=== PATIENT | male | born 1930 | race Caucasian/White ===

== ENCOUNTER 2017-09-10 19:49 | Emergency (ER) | payer MEDICARE, OTHER ==
[2017-09-10 22:02] LABS: WHITE BLOOD COUNT 5.8 10^3/ul (4.8-10.8)
[2017-09-10 22:02] LABS: HEMATOCRIT 34.2 % (42.0-52.0); MEAN CORPUSCULAR HEMOGLOBIN 30.5 pg (29.0-33.0); MEAN CORPUSCULAR HGB CONC 35.1 g/dl (32.0-37.0); MEAN CORPUSCULAR VOLUME 86.8 fl (82.0-101.0); PLATELET COUNT 140 10^3/UL (140-415); RED BLOOD COUNT 3.94 10^6/ul (4.70-6.10); RED CELL DISTRIBUTION WIDTH 14.2 % (11.5-14.5)
[2017-09-10] MEDS: IPRATROPIUM (NEB) 0.5 MG/2.5 ML AMP INH (22:03)
[2017-09-10] MEDS: ALBUTEROL 0.5% (NEB) 2.5 MG/0.5 ML AMP INH (22:03)
[2017-09-10] MEDS: IBUPROFEN 600 MG TAB PO (22:10)
[2017-09-10] MEDS: CEFTRIAXONE 1 GM/50 ML (PMX) 50 ML IVPB (22:10)
[2017-09-10] MEDS: SODIUM CHLORIDE 0.9% 1L BAG IV* (22:10)
[2017-09-10] MEDS: METHYLPREDNISOLONE 125 MG INJ IV (22:10)
[2017-09-10 22:11] LABS: INR 1.19; PROTIME 15.3 Sec (11.9-14.9); PT RATIO 1.2
[2017-09-10 22:12] LABS: PARTIAL THROMBOPLASTIN TIME 35.9 Sec (25.0-35.0)
[2017-09-10 22:14] LABS: LACTIC ACID 1.6 mmol/L (0.5-2.0)
[2017-09-10 22:15] LABS: ADD MAN DIFF? YES; ALANINE AMINOTRANSFERASE 32 IU/L (13-69); ALBUMIN 3.3 g/dl (3.3-4.9); ALBUMIN/GLOBULIN RATIO 1.03; ALKALINE PHOSPHATASE 104 IU/L (42-121); ANION GAP 14 (8-16); ASPARTATE AMINO TRANSFERASE 18 IU/L (15-46); BILIRUBIN,INDIRECT 0.3 mg/dl (0-1.1); BILIRUBIN,TOTAL 0.3 mg/dl (0.2-1.3); BLOOD UREA NITROGEN 20 mg/dl (7-20); CALCIUM 8.2 mg/dl (8.4-10.2); CARBON DIOXIDE 26 mmol/L (21-31); CHLORIDE 100 mmol/L (97-110); CREATININE 0.71 mg/dl (0.61-1.24); GLUCOSE 252 mg/dl (70-220); LIPASE 41 U/L (23-300); POTASSIUM 4.5 mmol/L (3.5-5.1); SODIUM 135 mmol/L (135-144); TOTAL PROTEIN 6.5 g/dl (6.1-8.1)
[2017-09-10 22:28] LABS: TROPONIN-I < 0.012 ng/ml (0.00-0.12)
[2017-09-10 22:40] LABS: BAND NEUTROPHILS #M 0.1 10^3/ul (0.0-0.6); BAND NEUTROPHILS % (M) 3 % (0-4); EOSINOPHILS % (M) 2 % (0-7); GIANT THROMBO% (M) 1 % (0-0); LYMPHOCYTES #M 0.6 10^3/ul (0.8-2.9); LYMPHOCYTES % (M) 11 % (15-51); MONOCYTE #M 0.6 10^3/ul (0.3-0.9); MONOCYTES % (M) 11 % (0-11); PLATELET ESTIMATE NORMAL; POIKILOCYTOSIS 1+ (0-0); POLYCHROMASIA 2+ (0-0); REACTIVE LYMPHOCYTES% (M) 1 % (0-0); SEG NEUT #M 4.2 10^3/ul (1.6-7.5); SEGMENTED NEUTROPHILS (M) % 72 % (39-77); SMUDGE%M 9 % (0-0)
[2017-09-10 23:26] LABS: ADD UMIC NO; UR ASCORBIC ACID 40 mg/dL (NEGATIVE); UR BILIRUBIN (Dip) NEGATIVE (NEGATIVE); UR BLOOD (Dip) NEGATIVE (NEGATIVE); UR CLARITY CLEAR (CLEAR); UR COLOR YELLOW (YELLOW); UR GLUCOSE (Dip) NEGATIVE (NEGATIVE); UR KETONES (Dip) NEGATIVE (NEGATIVE); UR LEUKOCYTE ESTERASE (Dip) NEGATIVE Leu/ul (NEGATIVE); UR NITRITE (Dip) NEGATIVE (NEGATIVE); UR SPECIFIC GRAVITY (Dip) 1.018 (1.003-1.030); UR TOTAL PROTEIN (Dip) NEGATIVE (NEGATIVE); UR UROBILINOGEN (Dip) 1+ mg/dL (NEGATIVE)
[2017-09-11] MEDS ORDERED: LORAZEPAM 0.5 MG TAB PO
[2017-09-11] MEDS ORDERED: DOCUSATE SODIUM 100 MG CAP PO
[2017-09-11] MEDS ORDERED: NACL 0.9% 3 ML SYG IV
[2017-09-11] MEDS ORDERED: OXYCODONE/ACETAMINOPHEN (5/325) TAB PO
[2017-09-11] MEDS ORDERED: ONDANSETRON 4 MG TAB PO
[2017-09-11] MEDS ORDERED: ACETAMINOPHEN 650 MG SUPP PR
[2017-09-11] MEDS: CEFTRIAXONE 1 GM/50 ML (PMX) 50 ML IVPB
[2017-09-11] MEDS ORDERED: MECLIZINE 25 MG TAB PO
[2017-09-11] MEDS: AZITHROMYCIN 500MG/NS (PMX) 250 ML IVPB (00:20)
[2017-09-11 00:42] LABS: B-TYPE NATRIURETIC PEPTIDE 353 PG/ML (0-450)
[2017-09-11] MEDS: IOHEXOL 300MG/ML 150 ML BTL (01:16)
[2017-09-11] MEDS: SOD CHLORIDE 0.9% 100 ML (01:16)
[2017-09-11] MEDS: AZITHROMYCIN 500MG/NS (PMX) 250 ML IV (01:33)
[2017-09-11 01:34] LABS: HEMOGLOBIN A1C 6.4 % (0-5.9)
[2017-09-11] MEDS: ALBUTEROL/IPRATROPIUM (NEB) 3 ML AMP NEB ×3 (01:59→09:56)
[2017-09-11] MEDS ORDERED: GLUCOSE GEL 15 GRAM TUBE PO ×2 (02:00)
[2017-09-11] MEDS ORDERED: DEXTROSE 50% 50 ML SYRINGE IV ×2 (02:00)
[2017-09-11] MEDS ORDERED: GLUCAGON 1 MG INJ IM (02:00)
[2017-09-11] MEDS ORDERED: GLUCOSE GEL 15 GRAM TUBE BUCCAL (02:00)
[2017-09-11] MEDS: ACCU-CHEK XX (02:04)
[2017-09-11 06:44] LABS: ADD MAN DIFF? NO
[2017-09-11 06:50] LABS: BASOPHILS % 0.2 % (0.0-2.0); HEMOGLOBIN 11.6 g/dl (14.0-18.0); LYMPHOCYTES # 0.9 10^3/ul (0.8-2.9); LYMPHOCYTES % 17.7 % (15.0-51.0); MEAN CORPUSCULAR HEMOGLOBIN 29.8 pg (29.0-33.0); MEAN CORPUSCULAR HGB CONC 34.1 g/dl (32.0-37.0); MEAN CORPUSCULAR VOLUME 87.4 fl (82.0-101.0); MEAN PLATELET VOLUME 8.9 fl (7.4-10.4); MONOCYTES % 18.9 % (0.0-11.0); NEUTROPHIL # 3.2 10^3/ul (1.6-7.5); NEUTROPHILS % 62.8 % (39.0-77.0); PLATELET COUNT 124 10^3/UL (140-415); RED BLOOD COUNT 3.89 10^6/ul (4.70-6.10); RED CELL DISTRIBUTION WIDTH 14.3 % (11.5-14.5)
[2017-09-11 07:31] LABS: ALANINE AMINOTRANSFERASE 32 IU/L (13-69); ALBUMIN 2.8 g/dl (3.3-4.9); ALBUMIN/GLOBULIN RATIO 0.96; ALKALINE PHOSPHATASE 86 IU/L (42-121); ANION GAP 13 (8-16); ASPARTATE AMINO TRANSFERASE 17 IU/L (15-46); BILIRUBIN,INDIRECT 0.1 mg/dl (0-1.1); BILIRUBIN,TOTAL 0.1 mg/dl (0.2-1.3); BLOOD UREA NITROGEN 16 mg/dl (7-20); CALCIUM 7.6 mg/dl (8.4-10.2); CARBON DIOXIDE 21 mmol/L (21-31); CHLORIDE 110 mmol/L (97-110); CREATININE 0.58 mg/dl (0.61-1.24); GLUCOSE 290 mg/dl (70-220); SODIUM 140 mmol/L (135-144); TOTAL PROTEIN 5.7 g/dl (6.1-8.1)
[2017-09-11] MEDS: LEVOTHYROXINE 100 MCG TAB PO (07:50)
[2017-09-11] MEDS: INSULIN ASPART [NOVOLOG] 3 ML PEN SC (08:36)
[2017-09-11] MEDS: HYDROCHLOROTHIAZIDE 25 MG TAB PO (09:27)
[2017-09-11] MEDS: APIXABAN 5 MG TABLET PO (09:27)
[2017-09-11] MEDS: FAMOTIDINE 20 MG TAB PO (09:27)
[2017-09-11] MEDS: FISH OIL 1,000 MG CAP PO (09:27)
[2017-09-11] MEDS: LOSARTAN 25 MG TAB PO (09:28)
[2017-09-11] MEDS: AMIODARONE 200 MG TAB PO (09:28)
[2017-09-11] MEDS: METOPROLOL (XL) 25 MG TAB PO (09:29)
[2017-09-11] MEDS: ASPIRIN 81 MG TAB PO (09:31)
[2017-09-11] MEDS: predniSONE 20 MG TAB PO (09:36)
[2017-09-11] MEDS: NPH, HUMAN INSULIN ISOPHANE 3ML VIAL SC (09:49)
[2017-09-11] MEDS ORDERED: ACCU-CHEK XX (10:00)
[2017-09-11] MEDS: SALMETEROL/FLUTICASONE 500/50 INHA INH (10:05)
[2017-09-11] MEDS ORDERED: MONTELUKAST 10 MG TAB PO (21:00)
[2017-09-11] MEDS ORDERED: ATORVASTATIN 10 MG TAB PO (21:00)
[2017-09-11] MEDS ORDERED: TAMSULOSIN (SR) 0.4 MG CAP PO (21:00)
== END 2017-09-11 10:55 | disposition home or self-care (01) ==
LOC: E/R 09-11 10:55
DX: J45.41 Moderate persistent asthma with (acute) exacerbation (principal)
CPT/HCPCS: 36415; 71045; 71275; 80053; 81003; 82962; 83036; 83605; 83690; 83880; 84484; 85025; 85610; 85730; 87040; 87086; 87400; 93005; 94640; 94644; 94664; 96365; 96372; 96375; 99285-25

== ENCOUNTER 2017-12-01 21:33 | Observation (INO) | payer MEDICARE, OTHER ==
[2017-12-01 22:34] LABS: ADD MAN DIFF? NO
[2017-12-01 22:36] LABS: WHITE BLOOD COUNT 6.6 10^3/ul (4.8-10.8)
[2017-12-01 22:36] LABS: BASOPHILS % 0.3 % (0.0-2.0); EOSINOPHILS # 0.1 10^3/ul (0.0-0.5); EOSINOPHILS % 0.9 % (0.0-7.0); HEMATOCRIT 34.7 % (42.0-52.0); HEMOGLOBIN 11.6 g/dl (14.0-18.0); LYMPHOCYTES # 0.8 10^3/ul (0.8-2.9); LYMPHOCYTES % 12.7 % (15.0-51.0); MEAN CORPUSCULAR HEMOGLOBIN 29.4 pg (29.0-33.0); MEAN CORPUSCULAR HGB CONC 33.4 g/dl (32.0-37.0); MEAN CORPUSCULAR VOLUME 87.8 fl (82.0-101.0); MEAN PLATELET VOLUME 9.5 fl (7.4-10.4); MONOCYTE # 1.2 10^3/ul (0.3-0.9); MONOCYTES % 18.1 % (0.0-11.0); NEUTROPHIL # 4.4 10^3/ul (1.6-7.5); NEUTROPHILS % 67.7 % (39.0-77.0); PLATELET COUNT 109 10^3/UL (140-415); RED BLOOD COUNT 3.95 10^6/ul (4.70-6.10); RED CELL DISTRIBUTION WIDTH 14.8 % (11.5-14.5)
[2017-12-01 22:43] LABS: ADD UMIC NO; UR ASCORBIC ACID 40 mg/dL (NEGATIVE); UR BILIRUBIN (Dip) NEGATIVE (NEGATIVE); UR BLOOD (Dip) NEGATIVE (NEGATIVE); UR CLARITY CLEAR (CLEAR); UR COLOR YELLOW (YELLOW); UR GLUCOSE (Dip) 1+ mg/dL (NEGATIVE); UR KETONES (Dip) NEGATIVE (NEGATIVE); UR LEUKOCYTE ESTERASE (Dip) NEGATIVE Leu/ul (NEGATIVE); UR NITRITE (Dip) NEGATIVE (NEGATIVE); UR SPECIFIC GRAVITY (Dip) 1.015 (1.003-1.030); UR TOTAL PROTEIN (Dip) NEGATIVE (NEGATIVE); UR UROBILINOGEN (Dip) 1+ mg/dL (NEGATIVE)
[2017-12-01 22:54] LABS: ALANINE AMINOTRANSFERASE 30 IU/L (13-69); ALBUMIN 3.1 g/dl (3.3-4.9); ALBUMIN/GLOBULIN RATIO 0.93; ALKALINE PHOSPHATASE 172 IU/L (42-121); ANION GAP 12 (8-16); ASPARTATE AMINO TRANSFERASE 15 IU/L (15-46); BILIRUBIN,INDIRECT 0.5 mg/dl (0-1.1); BILIRUBIN,TOTAL 0.5 mg/dl (0.2-1.3); BLOOD UREA NITROGEN 17 mg/dl (7-20); CALCIUM 8.6 mg/dl (8.4-10.2); CARBON DIOXIDE 28 mmol/L (21-31); CHLORIDE 98 mmol/L (97-110); CREATININE 0.78 mg/dl (0.61-1.24); GLUCOSE 289 mg/dl (70-220); POTASSIUM 4.8 mmol/L (3.5-5.1); SODIUM 133 mmol/L (135-144); TOTAL PROTEIN 6.4 g/dl (6.1-8.1)
[2017-12-01 22:55] LABS: LACTIC ACID 1.6 mmol/L (0.5-2.0)
[2017-12-01 22:55] LABS: INR 1.16; PT RATIO 1.2
[2017-12-01 22:56] LABS: PARTIAL THROMBOPLASTIN TIME 35.2 Sec (25.0-35.0)
[2017-12-01 23:11] LABS: TROPONIN-I < 0.012 ng/ml (0.000-0.120)
[2017-12-01 23:31] LABS: MAGNESIUM 1.7 mg/dl (1.7-2.5)
[2017-12-01] MEDS: SOD CHLORIDE 0.9% 500 ML IV (23:45)
[2017-12-02 04:49] LABS: LACTIC ACID 0.8 mmol/L (0.5-2.0)
[2017-12-02] MEDS ORDERED: NACL 0.9% 3 ML SYG IV (05:00)
[2017-12-02] MEDS ORDERED: DOCUSATE SODIUM 100 MG CAP PO (05:00)
[2017-12-02] MEDS ORDERED: HYDROCODONE/APAP (5/325) TAB PO (05:00)
[2017-12-02] MEDS: ALBUTEROL HFA 8 GM INHALER INH ×6 (05:00→23:33)
[2017-12-02] MEDS ORDERED: MECLIZINE 25 MG TAB PO (05:00)
[2017-12-02] MEDS ORDERED: HEPARIN 5,000 UNIT/0.5 ML VIAL SC (06:00)
[2017-12-02] MEDS: LEVOTHYROXINE 100 MCG TAB PO (06:35)
[2017-12-02] MEDS: PANTOPRAZOLE (EC) 40 MG TAB PO (06:35)
[2017-12-02] MEDS ORDERED: DEXTROSE 50% 50 ML SYRINGE IV ×2 (08:00)
[2017-12-02] MEDS ORDERED: GLUCOSE GEL 15 GRAM TUBE PO ×2 (08:00)
[2017-12-02] MEDS ORDERED: GLUCAGON 1 MG INJ IM (08:00)
[2017-12-02] MEDS ORDERED: GLUCOSE GEL 15 GRAM TUBE BUCCAL (08:00)
[2017-12-02] MEDS: LINAGLIPTIN 5 MG TABLET PO (08:18)
[2017-12-02] MEDS: AZITHROMYCIN 250 MG TAB PO (08:18)
[2017-12-02] MEDS: FISH OIL 1,000 MG CAP PO ×2 (08:19→20:58)
[2017-12-02] MEDS: FAMOTIDINE 20 MG TAB PO ×2 (08:19→20:59)
[2017-12-02] MEDS: DOCUSATE SODIUM 250 MG CAP PO ×2 (08:19→20:58)
[2017-12-02] MEDS: SALMETEROL/FLUTICASONE 500/50 INHA INH ×2 (08:21→20:57)
[2017-12-02] MEDS: METOPROLOL (XL) 25 MG TAB PO (08:24)
[2017-12-02] MEDS: HYDROCHLOROTHIAZIDE 12.5 MG CAP PO (08:24)
[2017-12-02] MEDS: LOSARTAN 25 MG TAB PO (08:25)
[2017-12-02] MEDS: INSULIN ASPART [NOVOLOG] 3 ML PEN SC ×4 (08:27→21:00)
[2017-12-02] MEDS: APIXABAN 5 MG TABLET PO ×2 (08:31→20:59)
[2017-12-02] MEDS: ASPIRIN 81 MG TAB PO (08:31)
[2017-12-02] MEDS ORDERED: NON-FORMULARY/PATIENT OWN MED (Icosapent Ethyl (Vascepa) 2 GM) PO (09:00)
[2017-12-02] MEDS: ACCU-CHEK XX ×3 (10:05→19:54)
[2017-12-02] MEDS: metFORMIN 500 MG TAB PO ×2 (12:30→17:17)
[2017-12-02] MEDS: TIOTROPIUM 18 MCG CAPSULE INHA DEV INH (13:04)
[2017-12-02] MEDS: MONTELUKAST 10 MG TAB PO (20:59)
[2017-12-02] MEDS: TAMSULOSIN (SR) 0.4 MG CAP PO (20:59)
[2017-12-02] MEDS: ATORVASTATIN 10 MG TAB PO (20:59)
[2017-12-02] MEDS: IBUPROFEN 600 MG TAB PO (22:24)
[2017-12-03] MEDS: ALBUTEROL HFA 8 GM INHALER INH ×4 (01:00→12:17)
[2017-12-03] MEDS: ACCU-CHEK XX ×2 (02:00→10:05)
[2017-12-03 06:08] LABS: ADD MAN DIFF? NO
[2017-12-03 06:11] LABS: WHITE BLOOD COUNT 5.1 10^3/ul (4.8-10.8)
[2017-12-03 06:11] LABS: ABNORMAL IP MESSAGE 1; BASOPHILS % 0.2 % (0.0-2.0); EOSINOPHILS # 0.2 10^3/ul (0.0-0.5); EOSINOPHILS % 3.7 % (0.0-7.0); HEMATOCRIT 31.2 % (42.0-52.0); HEMOGLOBIN 10.6 g/dl (14.0-18.0); LYMPHOCYTES # 0.8 10^3/ul (0.8-2.9); LYMPHOCYTES % 15.9 % (15.0-51.0); MEAN CORPUSCULAR HEMOGLOBIN 29.9 pg (29.0-33.0); MEAN CORPUSCULAR VOLUME 88.1 fl (82.0-101.0); MONOCYTE # 1.1 10^3/ul (0.3-0.9); MONOCYTES % 20.6 % (0.0-11.0); PLATELET COUNT 85 10^3/UL (140-415); POSITIVE DIFF @See below; RED BLOOD COUNT 3.54 10^6/ul (4.70-6.10); RED CELL DISTRIBUTION WIDTH 14.6 % (11.5-14.5)
[2017-12-03] MEDS: PANTOPRAZOLE (EC) 40 MG TAB PO (06:14)
[2017-12-03] MEDS: LEVOTHYROXINE 100 MCG TAB PO (06:14)
[2017-12-03 06:37] LABS: ALANINE AMINOTRANSFERASE 27 IU/L (13-69); ALBUMIN 2.8 g/dl (3.3-4.9); ALBUMIN/GLOBULIN RATIO 0.96; ALKALINE PHOSPHATASE 123 IU/L (42-121); ANION GAP 14 (8-16); ASPARTATE AMINO TRANSFERASE 14 IU/L (15-46); BILIRUBIN,INDIRECT 0.7 mg/dl (0-1.1); BILIRUBIN,TOTAL 0.7 mg/dl (0.2-1.3); BLOOD UREA NITROGEN 24 mg/dl (7-20); CALCIUM 8.4 mg/dl (8.4-10.2); CARBON DIOXIDE 27 mmol/L (21-31); CHLORIDE 97 mmol/L (97-110); CREATININE 0.84 mg/dl (0.61-1.24); GLUCOSE 152 mg/dl (70-220); POTASSIUM 3.8 mmol/L (3.5-5.1); SODIUM 134 mmol/L (135-144); TOTAL PROTEIN 5.7 g/dl (6.1-8.1)
[2017-12-03 06:59] LABS: HEMOGLOBIN A1C 7.3 % (0-5.9)
[2017-12-03] MEDS: INSULIN ASPART [NOVOLOG] 3 ML PEN SC ×2 (08:03→12:18)
[2017-12-03] MEDS: APIXABAN 5 MG TABLET PO (08:39)
[2017-12-03] MEDS: AZITHROMYCIN 250 MG TAB PO (08:39)
[2017-12-03] MEDS: DOCUSATE SODIUM 250 MG CAP PO (08:39)
[2017-12-03] MEDS: FISH OIL 1,000 MG CAP PO (08:39)
[2017-12-03] MEDS: FAMOTIDINE 20 MG TAB PO (08:39)
[2017-12-03] MEDS: metFORMIN 500 MG TAB PO (08:39)
[2017-12-03] MEDS: ASPIRIN 81 MG TAB PO (08:39)
[2017-12-03] MEDS: LINAGLIPTIN 5 MG TABLET PO (08:40)
[2017-12-03] MEDS: HYDROCHLOROTHIAZIDE 12.5 MG CAP PO ×2 (08:43→09:00)
[2017-12-03] MEDS: TIOTROPIUM 18 MCG CAPSULE INHA DEV INH (08:45)
[2017-12-03] MEDS: SALMETEROL/FLUTICASONE 500/50 INHA INH (08:47)
[2017-12-03] MEDS: LOSARTAN 25 MG TAB PO (09:00)
[2017-12-03] MEDS: METOPROLOL (XL) 25 MG TAB PO (09:00)
[2017-12-04] MEDS ORDERED: AMIODARONE 200 MG TAB PO (09:00)
== END 2017-12-03 17:05 | disposition home or self-care (01) ==
LOC: MS2 12-02 00:37 → E/R 21:33
DX: J06.9 Acute upper respiratory infection, unspecified (principal); R42 Dizziness and giddiness; R41.0 Disorientation, unspecified; J44.9 Chronic obstructive pulmonary disease, unspecified; J45.909 Unspecified asthma, uncomplicated; E11.65 Type 2 diabetes mellitus with hyperglycemia; E03.9 Hypothyroidism, unspecified; D64.9 Anemia, unspecified; D69.6 Thrombocytopenia, unspecified; I25.10 Atherosclerotic heart disease of native coronary artery without angina pectoris; K21.9 Gastro-esophageal reflux disease without esophagitis; E78.2 Mixed hyperlipidemia; N40.1 Benign prostatic hyperplasia with lower urinary tract symptoms; N13.8 Other obstructive and reflux uropathy; I48.2 Chronic atrial fibrillation; I11.0 Hypertensive heart disease with heart failure; I50.20 Unspecified systolic (congestive) heart failure; C46.9 Kaposi's sarcoma, unspecified; Z79.01 Long term (current) use of anticoagulants; Z95.0 Presence of cardiac pacemaker
CPT/HCPCS: 36415; 70450; 71045; 76536; 80053; 81003; 82962; 83036; 83605; 83735; 84443; 84484; 85025; 85610; 85730; 87040; 87086; 93005; 93306; 99285-25

== ENCOUNTER 2018-02-22 10:16 | Emergency (ER) | payer MEDICARE, OTHER ==
[2018-02-22 11:49] LABS: ADD MAN DIFF? NO
[2018-02-22 11:51] LABS: WHITE BLOOD COUNT 6.6 10^3/ul (4.8-10.8)
[2018-02-22 11:51] LABS: ABNORMAL IP MESSAGE 1; BASOPHILS % 0.2 % (0.0-2.0); EOSINOPHILS % 0.6 % (0.0-7.0); HEMOGLOBIN 12.1 g/dl (14.0-18.0); LYMPHOCYTES # 0.5 10^3/ul (0.8-2.9); LYMPHOCYTES % 8.2 % (15.0-51.0); MEAN CORPUSCULAR HEMOGLOBIN 29.7 pg (29.0-33.0); MEAN CORPUSCULAR HGB CONC 33.6 g/dl (32.0-37.0); MEAN CORPUSCULAR VOLUME 88.2 fl (82.0-101.0); MEAN PLATELET VOLUME 9.1 fl (7.4-10.4); MONOCYTE # 1.2 10^3/ul (0.3-0.9); MONOCYTES % 18.3 % (0.0-11.0); NEUTROPHIL # 4.8 10^3/ul (1.6-7.5); NEUTROPHILS % 72.2 % (39.0-77.0); PLATELET COUNT 97 10^3/UL (140-415); POSITIVE DIFF @See below; RED BLOOD COUNT 4.08 10^6/ul (4.70-6.10); RED CELL DISTRIBUTION WIDTH 15.6 % (11.5-14.5)
[2018-02-22] MEDS: SOD CHLORIDE 0.9% 1,000 ML IV ×2 (12:00→14:07)
[2018-02-22 12:08] LABS: IRON 15 ug/dl (35-150)
[2018-02-22 12:19] LABS: PROTIME 17.4 Sec (11.9-14.9); PT RATIO 1.4
[2018-02-22 12:28] LABS: ALANINE AMINOTRANSFERASE 23 IU/L (13-69); ALBUMIN 3.2 g/dl (3.3-4.9); ALKALINE PHOSPHATASE 86 IU/L (42-121); ANION GAP 16 (8-16); ASPARTATE AMINO TRANSFERASE 16 IU/L (15-46); BILIRUBIN,INDIRECT 0.3 mg/dl (0-1.1); BILIRUBIN,TOTAL 0.3 mg/dl (0.2-1.3); BLOOD UREA NITROGEN 22 mg/dl (7-20); CALCIUM 8.9 mg/dl (8.4-10.2); CARBON DIOXIDE 26 mmol/L (21-31); CHLORIDE 97 mmol/L (97-110); CREATINE KINASE < 20 IU/L (23-200); CREATININE 0.75 mg/dl (0.61-1.24); GLUCOSE 157 mg/dl (70-220); POTASSIUM 4.7 mmol/L (3.5-5.1); SODIUM 134 mmol/L (135-144); TOTAL PROTEIN 6.4 g/dl (6.1-8.1)
[2018-02-22 12:40] LABS: B-TYPE NATRIURETIC PEPTIDE 277 PG/ML (0-450); CK-MB 0.55 ng/ml (0.0-2.4); TROPONIN-I < 0.010 ng/ml (0.000-0.120)
[2018-02-22 13:30] LABS: % IRON SATURATION 7 % SAT (22-52); TOTAL IRON BINDING CAPACITY 229 ug/dl (241-421)
[2018-02-22] MEDS: morphine 2 MG INJ IV (13:43)
[2018-02-22] MEDS: ONDANSETRON 4 MG INJ IV (13:44)
[2018-02-22 14:01] LABS: ADD UMIC NO; UR ASCORBIC ACID 40 mg/dL (NEGATIVE); UR BILIRUBIN (Dip) NEGATIVE (NEGATIVE); UR BLOOD (Dip) NEGATIVE (NEGATIVE); UR CLARITY CLEAR (CLEAR); UR COLOR YELLOW (YELLOW); UR GLUCOSE (Dip) NEGATIVE (NEGATIVE); UR KETONES (Dip) NEGATIVE (NEGATIVE); UR LEUKOCYTE ESTERASE (Dip) NEGATIVE Leu/ul (NEGATIVE); UR NITRITE (Dip) NEGATIVE (NEGATIVE); UR SPECIFIC GRAVITY (Dip) 1.017 (1.003-1.030); UR TOTAL PROTEIN (Dip) NEGATIVE (NEGATIVE); UR UROBILINOGEN (Dip) NEGATIVE (NEGATIVE)
== END 2018-02-22 16:05 | disposition home or self-care (01) ==
LOC: E/R 10:16
DX: E86.0 Dehydration (principal); J45.909 Unspecified asthma, uncomplicated; I51.7 Cardiomegaly; E11.9 Type 2 diabetes mellitus without complications; Z79.82 Long term (current) use of aspirin; Z79.84 Long term (current) use of oral hypoglycemic drugs; Z85.831 Personal history of malignant neoplasm of soft tissue; Z95.0 Presence of cardiac pacemaker
CPT/HCPCS: 70450; 71045; 80053; 81003; 82550; 82553; 82728; 83540; 83880; 84484; 85025; 85610; 85730; 86850; 86900; 86901; 93005; 99285-25

== ENCOUNTER 2018-03-07 08:32 | Day surgery (SDC) | payer MEDICARE, OTHER ==
[2018-03-07] MEDS ORDERED: LIDOCAINE 2% (SDV) 5 ML INJ (09:29)
[2018-03-07] MEDS ORDERED: PROPOFOL 40 ML (09:29)
[2018-03-07] MEDS ORDERED: EPHEDrine 50 MG INJ (09:30)
== END 2018-03-07 11:25 | disposition home or self-care (01) ==
LOC: GIL 08:32
DX: R19.4 Change in bowel habit (principal); K64.8 Other hemorrhoids; K64.4 Residual hemorrhoidal skin tags; K29.30 Chronic superficial gastritis without bleeding; K20.9 Esophagitis, unspecified; K22.10 Ulcer of esophagus without bleeding; I10 Essential (primary) hypertension; I25.10 Atherosclerotic heart disease of native coronary artery without angina pectoris; E11.9 Type 2 diabetes mellitus without complications; I50.9 Heart failure, unspecified; J45.909 Unspecified asthma, uncomplicated
CPT/HCPCS: 43239; 82962; 88305; 88312; 88313

== ENCOUNTER 2018-04-08 00:02 | Inpatient (IN) | payer MEDICARE, OTHER ==
[2018-04-08] MEDS: CEFEPIME 2GM/50 ML (PMX) 50 ML IVPB (00:54)
[2018-04-08] MEDS: SODIUM CHLORIDE 0.9% 1L BAG IV* (00:55)
[2018-04-08 00:58] LABS: ADD MAN DIFF? NO
[2018-04-08 01:01] LABS: ABNORMAL IP MESSAGE 1; BASOPHILS % 0.2 % (0.0-2.0); EOSINOPHILS # 0.1 10^3/ul (0.0-0.5); EOSINOPHILS % 2.4 % (0.0-7.0); HEMATOCRIT 30.6 % (42.0-52.0); HEMOGLOBIN 10.1 g/dl (14.0-18.0); LYMPHOCYTES # 0.4 10^3/ul (0.8-2.9); LYMPHOCYTES % 8.7 % (15.0-51.0); MEAN CORPUSCULAR HEMOGLOBIN 28.9 pg (29.0-33.0); MEAN CORPUSCULAR VOLUME 87.4 fl (82.0-101.0); MEAN PLATELET VOLUME 9.8 fl (7.4-10.4); MONOCYTE # 0.4 10^3/ul (0.3-0.9); MONOCYTES % 9.7 % (0.0-11.0); NEUTROPHIL # 3.2 10^3/ul (1.6-7.5); NEUTROPHILS % 78.5 % (39.0-77.0); PLATELET COUNT 87 10^3/UL (140-415); POSITIVE DIFF @See below
[2018-04-08 01:01] LABS: WHITE BLOOD COUNT 4.1 10^3/ul (4.8-10.8)
[2018-04-08 01:06] LABS: ADD UMIC NO; UR ASCORBIC ACID 40 mg/dL (NEGATIVE); UR BILIRUBIN (Dip) NEGATIVE (NEGATIVE); UR BLOOD (Dip) NEGATIVE (NEGATIVE); UR CLARITY SLIGHTLY CLOUDY (CLEAR); UR COLOR YELLOW (YELLOW); UR GLUCOSE (Dip) NEGATIVE (NEGATIVE); UR KETONES (Dip) NEGATIVE (NEGATIVE); UR LEUKOCYTE ESTERASE (Dip) NEGATIVE Leu/ul (NEGATIVE); UR MUCUS FEW /HPF (NONE SEEN); UR NITRITE (Dip) NEGATIVE (NEGATIVE); UR RBC 1 /HPF (0-5); UR SPECIFIC GRAVITY (Dip) 1.021 (1.003-1.030); UR TOTAL PROTEIN (Dip) NEGATIVE (NEGATIVE); UR UROBILINOGEN (Dip) 1+ mg/dL (NEGATIVE); UR WBC 2 /HPF (0-5)
[2018-04-08 01:19] LABS: INR 1.34; PROTIME 16.8 Sec (11.9-14.9); PT RATIO 1.3
[2018-04-08 01:20] LABS: PARTIAL THROMBOPLASTIN TIME 31.8 Sec (23.0-35.0)
[2018-04-08 01:21] LABS: LACTIC ACID 1.8 mmol/L (0.5-2.0)
[2018-04-08 01:23] LABS: ALANINE AMINOTRANSFERASE 24 IU/L (13-69); ALBUMIN 2.4 g/dl (3.3-4.9); ALKALINE PHOSPHATASE 108 IU/L (42-121); ANION GAP 12 (8-16); ASPARTATE AMINO TRANSFERASE 20 IU/L (15-46); BILIRUBIN,INDIRECT 0.5 mg/dl (0-1.1); BILIRUBIN,TOTAL 0.5 mg/dl (0.2-1.3); BLOOD UREA NITROGEN 24 mg/dl (7-20); CALCIUM 8.4 mg/dl (8.4-10.2); CARBON DIOXIDE 27 mmol/L (21-31); CHLORIDE 99 mmol/L (97-110); CREATININE 0.78 mg/dl (0.61-1.24); GLUCOSE 178 mg/dl (70-220); SODIUM 133 mmol/L (135-144); TOTAL PROTEIN 5.4 g/dl (6.1-8.1)
[2018-04-08 01:34] LABS: TROPONIN-I < 0.012 ng/ml (0.000-0.120)
[2018-04-08 03:16] LABS: LACTIC ACID 1.3 mmol/L (0.5-2.0)
[2018-04-08] MEDS ORDERED: IPRATROPIUM (HFA) 12.9 GM INHALER INH (05:30)
[2018-04-08] MEDS: AZITHROMYCIN 500MG/NS (PMX) 250 ML IVPB (05:37)
[2018-04-08] MEDS ORDERED: ACETAMINOPHEN 325 MG TAB PO (06:00)
[2018-04-08] MEDS ORDERED: BISACODYL (EC) 5 MG TAB PO (06:00)
[2018-04-08] MEDS ORDERED: NACL 0.9% 3 ML SYG IV (06:00)
[2018-04-08] MEDS: SOD CHLORIDE 0.9% 500 ML IV (06:47)
[2018-04-08] MEDS: PIPER-TAZO 3.375 GM IV (PMX) 100 ML IVPB ×3 (06:47→17:21)
[2018-04-08] MEDS: LEVOTHYROXINE 100 MCG TAB PO (06:48)
[2018-04-08] MEDS: PANTOPRAZOLE (EC) 40 MG TAB PO (06:48)
[2018-04-08] MEDS ORDERED: GLUCOSE GEL 15 GRAM TUBE PO ×2 (07:00)
[2018-04-08] MEDS ORDERED: GLUCAGON 1 MG INJ IM (07:00)
[2018-04-08] MEDS ORDERED: DEXTROSE 50% 50 ML SYRINGE IV ×2 (07:00)
[2018-04-08] MEDS ORDERED: GLUCOSE GEL 15 GRAM TUBE BUCCAL (07:00)
[2018-04-08] MEDS: INSULIN ASPART [NOVOLOG] 3 ML PEN SC ×4 (07:55→20:31)
[2018-04-08] MEDS: APIXABAN 5 MG TABLET PO ×2 (08:12→20:24)
[2018-04-08] MEDS: AMIODARONE 200 MG TAB PO (08:13)
[2018-04-08] MEDS ORDERED: METOPROLOL (XL) 25 MG TAB PO ×2 (09:00)
[2018-04-08] MEDS ORDERED: FLUTICASONE/VILANTEROL 100-25 INH (09:00)
[2018-04-08] MEDS: AZITHROMYCIN 250 MG TAB PO (10:07)
[2018-04-08] MEDS: TIOTROPIUM 18 MCG CAPSULE INHA DEV INH (10:07)
[2018-04-08] MEDS: FUROSEMIDE 20 MG TAB PO (10:07)
[2018-04-08] MEDS: FLUTICASONE/VILANTEROL 200-25 INH DEVICE INH (10:07)
[2018-04-08] MEDS: LINAGLIPTIN 5 MG TABLET PO (10:08)
[2018-04-08] MEDS: FISH OIL 1,000 MG CAP PO ×2 (10:08→20:23)
[2018-04-08] MEDS: AZELASTINE 0.05% 6 ML OPH BOTH EYES ×2 (11:26→20:24)
[2018-04-08] MEDS ORDERED: [UNRECOGNIZED DRUG - REMARK] XX (12:00)
[2018-04-08] MEDS: metFORMIN 500 MG TAB PO (17:20)
[2018-04-08] MEDS: ATORVASTATIN 10 MG TAB PO (20:24)
[2018-04-08] MEDS: TAMSULOSIN (SR) 0.4 MG CAP PO (20:24)
[2018-04-08] MEDS: MONTELUKAST 10 MG TAB PO (20:24)
[2018-04-09] MEDS: ACCU-CHEK XX (00:07)
[2018-04-09] MEDS: PIPER-TAZO 3.375 GM IV (PMX) 100 ML IVPB ×2 (00:40→06:33)
[2018-04-09 06:04] LABS: ADD MAN DIFF? NO
[2018-04-09 06:13] LABS: ABNORMAL IP MESSAGE 1; BASOPHILS % 0.2 % (0.0-2.0); EOSINOPHILS # 0.2 10^3/ul (0.0-0.5); EOSINOPHILS % 4.6 % (0.0-7.0); HEMATOCRIT 27.5 % (42.0-52.0); HEMOGLOBIN 8.9 g/dl (14.0-18.0); LYMPHOCYTES # 0.6 10^3/ul (0.8-2.9); LYMPHOCYTES % 14.4 % (15.0-51.0); MEAN CORPUSCULAR HEMOGLOBIN 28.9 pg (29.0-33.0); MEAN CORPUSCULAR HGB CONC 32.4 g/dl (32.0-37.0); MEAN CORPUSCULAR VOLUME 89.3 fl (82.0-101.0); MEAN PLATELET VOLUME 9.2 fl (7.4-10.4); MONOCYTE # 0.8 10^3/ul (0.3-0.9); MONOCYTES % 18.1 % (0.0-11.0); NEUTROPHIL # 2.7 10^3/ul (1.6-7.5); PLATELET COUNT 95 10^3/UL (140-415); POSITIVE DIFF @See below; RED BLOOD COUNT 3.08 10^6/ul (4.70-6.10); RED CELL DISTRIBUTION WIDTH 16.3 % (11.5-14.5)
[2018-04-09 06:13] LABS: WHITE BLOOD COUNT 4.3 10^3/ul (4.8-10.8)
[2018-04-09] MEDS: PANTOPRAZOLE (EC) 40 MG TAB PO (06:33)
[2018-04-09] MEDS: LEVOTHYROXINE 100 MCG TAB PO (06:33)
[2018-04-09 06:48] LABS: ALANINE AMINOTRANSFERASE 21 IU/L (13-69); ALBUMIN/GLOBULIN RATIO 0.74; ALKALINE PHOSPHATASE 81 IU/L (42-121); ANION GAP 8 (8-16); ASPARTATE AMINO TRANSFERASE 16 IU/L (15-46); BILIRUBIN,INDIRECT 0.4 mg/dl (0-1.1); BILIRUBIN,TOTAL 0.4 mg/dl (0.2-1.3); BLOOD UREA NITROGEN 19 mg/dl (7-20); CALCIUM 8.3 mg/dl (8.4-10.2); CARBON DIOXIDE 28 mmol/L (21-31); CHLORIDE 105 mmol/L (97-110); CREATININE 0.92 mg/dl (0.61-1.24); GLUCOSE 138 mg/dl (70-220); POTASSIUM 4.4 mmol/L (3.5-5.1); SODIUM 137 mmol/L (135-144); TOTAL PROTEIN 4.7 g/dl (6.1-8.1)
[2018-04-09] MEDS: INSULIN ASPART [NOVOLOG] 3 ML PEN SC ×4 (07:47→20:41)
[2018-04-09] MEDS: AZITHROMYCIN 250 MG TAB PO (08:30)
[2018-04-09] MEDS: FISH OIL 1,000 MG CAP PO ×2 (08:30→20:40)
[2018-04-09] MEDS: LINAGLIPTIN 5 MG TABLET PO (08:31)
[2018-04-09] MEDS: metFORMIN 500 MG TAB PO ×2 (08:31→17:41)
[2018-04-09] MEDS: APIXABAN 5 MG TABLET PO ×2 (08:32→20:39)
[2018-04-09] MEDS: AMIODARONE 200 MG TAB PO (08:35)
[2018-04-09] MEDS: FUROSEMIDE 20 MG TAB PO (08:35)
[2018-04-09] MEDS: AZELASTINE 0.05% 6 ML OPH BOTH EYES ×2 (08:36→20:39)
[2018-04-09] MEDS: FLUTICASONE/VILANTEROL 200-25 INH DEVICE INH (08:36)
[2018-04-09] MEDS: TIOTROPIUM 18 MCG CAPSULE INHA DEV INH (08:38)
[2018-04-09] MEDS: INFLUENZA VIRUS VACCINE 0.5 ML (DISPENSING) IM* (09:06)
[2018-04-09] MEDS: PNEUMOCOCCAL VACCINE 0.5 ML INJ (DISPENSING) IM* (10:00)
[2018-04-09] MEDS: LEVOFLOXACIN 500MG/D5W (PMX) 100 ML IVPB (12:49)
[2018-04-09] MEDS: FUROSEMIDE 40 MG INJ IV (12:49)
[2018-04-09] MEDS: DOCUSATE SODIUM 100 MG CAP PO (20:40)
[2018-04-09] MEDS: ATORVASTATIN 10 MG TAB PO (20:40)
[2018-04-09] MEDS: MONTELUKAST 10 MG TAB PO (20:40)
[2018-04-09] MEDS: TAMSULOSIN (SR) 0.4 MG CAP PO (20:41)
[2018-04-09] MEDS: TRIAMCINOLONE ACET 0.1% 15 GM OINT TOP (23:37)
[2018-04-09] MEDS: hydrOXYzine HCL 10 MG TAB PO (23:37)
[2018-04-10] MEDS: ACCU-CHEK XX (02:00)
[2018-04-10 06:39] LABS: ADD MAN DIFF? NO
[2018-04-10] MEDS: PANTOPRAZOLE (EC) 40 MG TAB PO (06:39)
[2018-04-10 06:41] LABS: WHITE BLOOD COUNT 5.7 10^3/ul (4.8-10.8)
[2018-04-10 06:41] LABS: BASOPHILS % 0.4 % (0.0-2.0); EOSINOPHILS # 0.2 10^3/ul (0.0-0.5); EOSINOPHILS % 3.2 % (0.0-7.0); HEMATOCRIT 28.6 % (42.0-52.0); HEMOGLOBIN 9.5 g/dl (14.0-18.0); LYMPHOCYTES # 0.9 10^3/ul (0.8-2.9); LYMPHOCYTES % 15.4 % (15.0-51.0); MEAN CORPUSCULAR HEMOGLOBIN 29.3 pg (29.0-33.0); MEAN CORPUSCULAR HGB CONC 33.2 g/dl (32.0-37.0); MEAN CORPUSCULAR VOLUME 88.3 fl (82.0-101.0); MEAN PLATELET VOLUME 9.3 fl (7.4-10.4); MONOCYTE # 0.7 10^3/ul (0.3-0.9); MONOCYTES % 12.8 % (0.0-11.0); NEUTROPHIL # 3.9 10^3/ul (1.6-7.5); NEUTROPHILS % 67.7 % (39.0-77.0); PLATELET COUNT 144 10^3/UL (140-415); RED BLOOD COUNT 3.24 10^6/ul (4.70-6.10); RED CELL DISTRIBUTION WIDTH 16.1 % (11.5-14.5)
[2018-04-10] MEDS: LEVOTHYROXINE 100 MCG TAB PO (06:54)
[2018-04-10 07:04] LABS: ANION GAP 11 (8-16); BLOOD UREA NITROGEN 18 mg/dl (7-20); CALCIUM 8.9 mg/dl (8.4-10.2); CARBON DIOXIDE 28 mmol/L (21-31); CHLORIDE 105 mmol/L (97-110); GLUCOSE 95 mg/dl (70-220); SODIUM 140 mmol/L (135-144)
[2018-04-10 07:06] LABS: CREATINE KINASE < 20 IU/L (23-200)
[2018-04-10 07:16] LABS: CK-MB 0.46 ng/ml (0.0-2.4); TROPONIN-I < 0.012 ng/ml (0.000-0.120)
[2018-04-10] MEDS: INSULIN ASPART [NOVOLOG] 3 ML PEN SC ×3 (07:43→18:37)
[2018-04-10] MEDS: metFORMIN 500 MG TAB PO ×2 (07:56→18:33)
[2018-04-10] MEDS: FLUTICASONE/VILANTEROL 200-25 INH DEVICE INH (08:30)
[2018-04-10] MEDS: AZELASTINE 0.05% 6 ML OPH BOTH EYES (08:31)
[2018-04-10] MEDS: TIOTROPIUM 18 MCG CAPSULE INHA DEV INH (08:31)
[2018-04-10] MEDS: TRIAMCINOLONE ACET 0.1% 15 GM OINT TOP (08:31)
[2018-04-10] MEDS: LINAGLIPTIN 5 MG TABLET PO (08:32)
[2018-04-10] MEDS: FISH OIL 1,000 MG CAP PO (08:32)
[2018-04-10] MEDS: FUROSEMIDE 20 MG TAB PO (08:32)
[2018-04-10] MEDS: AMIODARONE 200 MG TAB PO (08:33)
[2018-04-10] MEDS: APIXABAN 5 MG TABLET PO (08:33)
[2018-04-10] MEDS: LEVOFLOXACIN 250MG/D5W (PMX) 50 ML IVPB (12:49)
== END 2018-04-10 19:00 | disposition home or self-care (01) | DRG 871 ==
LOC: E/R 00:02 → TEL 04:59
DX: A41.9 Sepsis, unspecified organism (principal); J18.9 Pneumonia, unspecified organism; D61.818 Other pancytopenia; I50.22 Chronic systolic (congestive) heart failure; J44.0 Chronic obstructive pulmonary disease with (acute) lower respiratory infection; C46.9 Kaposi's sarcoma, unspecified; I11.0 Hypertensive heart disease with heart failure; J45.909 Unspecified asthma, uncomplicated; I48.2 Chronic atrial fibrillation; E78.2 Mixed hyperlipidemia; K21.9 Gastro-esophageal reflux disease without esophagitis; I25.10 Atherosclerotic heart disease of native coronary artery without angina pectoris; I34.0 Nonrheumatic mitral (valve) insufficiency; E11.9 Type 2 diabetes mellitus without complications; N40.0 Benign prostatic hyperplasia without lower urinary tract symptoms; E04.2 Nontoxic multinodular goiter; Z87.891 Personal history of nicotine dependence
CPT/HCPCS: 36415; 71045; 80048; 80053; 81001; 81003; 82550; 82553; 82962; 83605; 84443; 84484; 85025; 85610; 85730; 87040; 87086; 90686; 90732; 93005; 96374; 99291-25

== ENCOUNTER 2018-07-08 10:01 | Emergency (ER) | payer MEDICARE, OTHER ==
[2018-07-08 10:55] LABS: ADD MAN DIFF? NO
[2018-07-08] MEDS: ALBUTEROL 0.083% (NEB) 2.5 MG/3 ML AMP INH (10:55)
[2018-07-08 10:57] LABS: WHITE BLOOD COUNT 8.9 10^3/ul (4.8-10.8)
[2018-07-08 10:57] LABS: BASOPHILS % 0.3 % (0.0-2.0); EOSINOPHILS % 10.7 % (0.0-7.0); HEMATOCRIT 38.8 % (42.0-52.0); HEMOGLOBIN 12.8 g/dl (14.0-18.0); LYMPHOCYTES # 0.9 10^3/ul (0.8-2.9); LYMPHOCYTES % 10.6 % (15.0-51.0); MEAN CORPUSCULAR HEMOGLOBIN 29.8 pg (29.0-33.0); MEAN CORPUSCULAR VOLUME 90.4 fl (82.0-101.0); MONOCYTE # 1.1 10^3/ul (0.3-0.9); MONOCYTES % 12.4 % (0.0-11.0); NEUTROPHIL # 5.8 10^3/ul (1.6-7.5); NEUTROPHILS % 65.2 % (39.0-77.0); PLATELET COUNT 219 10^3/UL (140-415); RED BLOOD COUNT 4.29 10^6/ul (4.70-6.10); RED CELL DISTRIBUTION WIDTH 13.8 % (11.5-14.5)
[2018-07-08 11:15] LABS: ALANINE AMINOTRANSFERASE 20 IU/L (13-69); ALBUMIN 4.7 g/dl (3.3-4.9); ALBUMIN/GLOBULIN RATIO 1.04; ALKALINE PHOSPHATASE 106 IU/L (42-121); ANION GAP 8 (5-13); ASPARTATE AMINO TRANSFERASE 21 IU/L (15-46); BILIRUBIN,INDIRECT 0.3 mg/dl (0-1.1); BILIRUBIN,TOTAL 0.3 mg/dl (0.2-1.3); BLOOD UREA NITROGEN 31 mg/dl (7-20); CALCIUM 10.1 mg/dl (8.4-10.2); CARBON DIOXIDE 32 mmol/L (21-31); CHLORIDE 97 mmol/L (97-110); CREATININE 0.87 mg/dl (0.61-1.24); GLUCOSE 108 mg/dl (70-220); POTASSIUM 4.3 mmol/L (3.5-5.1); SODIUM 137 mmol/L (135-144); TOTAL PROTEIN 9.2 g/dl (6.1-8.1)
[2018-07-08 11:27] LABS: TROPONIN-I < 0.012 ng/ml (0.000-0.120)
[2018-07-08 11:31] LABS: INR 1.06; PROTIME 13.9 Sec (11.9-14.9); PT RATIO 1.1
== END 2018-07-08 11:46 | disposition home or self-care (01) ==
LOC: E/R 10:01
DX: R09.89 Other specified symptoms and signs involving the circulatory and respiratory systems (principal); I10 Essential (primary) hypertension; J45.909 Unspecified asthma, uncomplicated; Z79.84 Long term (current) use of oral hypoglycemic drugs; Z95.0 Presence of cardiac pacemaker
CPT/HCPCS: 36415; 71045; 80053; 83605; 84484; 85025; 85610; 85730; 87040; 93005; 94664; 99285-25

== ENCOUNTER 2018-11-18 21:20 | Emergency (ER) | payer MEDICARE, OTHER, MEDICAID ==
[2018-11-19] MEDS: morphine 4 MG/ML VIAL IV (00:16)
[2018-11-19] MEDS: ONDANSETRON 4 MG INJ IV (00:16)
[2018-11-19] MEDS: SOD CHLORIDE 0.9% 500 ML IV (00:17)
[2018-11-19 00:18] LABS: ADD MAN DIFF? NO
[2018-11-19 00:28] LABS: WHITE BLOOD COUNT 7.4 10^3/ul (4.8-10.8)
[2018-11-19 00:28] LABS: BASOPHIL # 0.1 10^3/ul (0.0-0.1); BASOPHILS % 0.7 % (0.0-2.0); EOSINOPHILS # 0.5 10^3/ul (0.0-0.5); EOSINOPHILS % 7.2 % (0.0-7.0); HEMATOCRIT 37.7 % (42.0-52.0); HEMOGLOBIN 12.8 g/dl (14.0-18.0); LYMPHOCYTES # 0.9 10^3/ul (0.8-2.9); LYMPHOCYTES % 12.1 % (15.0-51.0); MEAN CORPUSCULAR VOLUME 88.5 fl (82.0-101.0); MEAN PLATELET VOLUME 8.4 fl (7.4-10.4); MONOCYTE # 1.2 10^3/ul (0.3-0.9); MONOCYTES % 16.6 % (0.0-11.0); NEUTROPHIL # 4.6 10^3/ul (1.6-7.5); NEUTROPHILS % 62.7 % (39.0-77.0); PLATELET COUNT 203 10^3/UL (140-415); RED BLOOD COUNT 4.26 10^6/ul (4.70-6.10); RED CELL DISTRIBUTION WIDTH 12.9 % (11.5-14.5)
[2018-11-19 00:40] LABS: ADD UMIC NO; UR ASCORBIC ACID 40 mg/dL (NEGATIVE); UR BILIRUBIN (Dip) NEGATIVE (NEGATIVE); UR BLOOD (Dip) NEGATIVE (NEGATIVE); UR CLARITY CLEAR (CLEAR); UR COLOR YELLOW (YELLOW); UR GLUCOSE (Dip) 3+ mg/dL (NEGATIVE); UR KETONES (Dip) NEGATIVE (NEGATIVE); UR LEUKOCYTE ESTERASE (Dip) NEGATIVE Leu/ul (NEGATIVE); UR NITRITE (Dip) NEGATIVE (NEGATIVE); UR TOTAL PROTEIN (Dip) NEGATIVE (NEGATIVE); UR UROBILINOGEN (Dip) NEGATIVE (NEGATIVE)
[2018-11-19 00:54] LABS: ALANINE AMINOTRANSFERASE 24 IU/L (13-69); ALBUMIN 3.7 g/dl (3.3-4.9); ALBUMIN/GLOBULIN RATIO 1.12; ALKALINE PHOSPHATASE 132 IU/L (42-121); ANION GAP 8 (5-13); ASPARTATE AMINO TRANSFERASE 16 IU/L (15-46); BILIRUBIN,INDIRECT 0.5 mg/dl (0-1.1); BILIRUBIN,TOTAL 0.5 mg/dl (0.2-1.3); BLOOD UREA NITROGEN 16 mg/dl (7-20); CALCIUM 8.9 mg/dl (8.4-10.2); CARBON DIOXIDE 30 mmol/L (21-31); CHLORIDE 96 mmol/L (97-110); CREATININE 0.65 mg/dl (0.61-1.24); GLUCOSE 312 mg/dl (70-220); LIPASE 21 U/L (23-300); POTASSIUM 4.1 mmol/L (3.5-5.1); SODIUM 134 mmol/L (135-144)
[2018-11-19 01:05] LABS: TROPONIN-I < 0.012 ng/ml (0.000-0.120)
== END 2018-11-19 02:12 | disposition home or self-care (01) ==
LOC: E/R 21:20
DX: R10.9 Unspecified abdominal pain (principal); J45.909 Unspecified asthma, uncomplicated; I10 Essential (primary) hypertension; Z79.84 Long term (current) use of oral hypoglycemic drugs; Z79.01 Long term (current) use of anticoagulants
CPT/HCPCS: 36415; 71045; 74176; 80053; 81003; 83690; 84484; 85025; 96374; 96375; 99285-25

== ENCOUNTER 2018-12-05 22:02 | Inpatient (IN) | payer MEDICARE, MEDICAID, OTHER ==
[2018-12-05 23:24] LABS: ADD MAN DIFF? NO
[2018-12-05 23:27] LABS: BASOPHIL # 0.1 10^3/ul (0.0-0.1); BASOPHILS % 0.4 % (0.0-2.0); EOSINOPHILS # 0.8 10^3/ul (0.0-0.5); EOSINOPHILS % 5.9 % (0.0-7.0); HEMATOCRIT 30.8 % (42.0-52.0); HEMOGLOBIN 10.2 g/dl (14.0-18.0); LYMPHOCYTES # 0.9 10^3/ul (0.8-2.9); LYMPHOCYTES % 6.6 % (15.0-51.0); MEAN CORPUSCULAR HGB CONC 33.1 g/dl (32.0-37.0); MEAN CORPUSCULAR VOLUME 87.5 fl (82.0-101.0); MONOCYTE # 1.3 10^3/ul (0.3-0.9); NEUTROPHILS % 77.7 % (39.0-77.0); PLATELET COUNT 224 10^3/UL (140-415); RED BLOOD COUNT 3.52 10^6/ul (4.70-6.10); RED CELL DISTRIBUTION WIDTH 13.2 % (11.5-14.5)
[2018-12-05 23:27] LABS: WHITE BLOOD COUNT 14.2 10^3/ul (4.8-10.8)
[2018-12-05 23:46] LABS: ANION GAP 6 (5-13); BLOOD UREA NITROGEN 24 mg/dl (7-20); CALCIUM 8.8 mg/dl (8.4-10.2); CARBON DIOXIDE 29 mmol/L (21-31); CHLORIDE 95 mmol/L (97-110); CREATININE 0.94 mg/dl (0.61-1.24); GLUCOSE 229 mg/dl (70-220); INR 1.17; POTASSIUM 5.5 mmol/L (3.5-5.1); PT RATIO 1.2; SODIUM 130 mmol/L (135-144)
[2018-12-05 23:47] LABS: PARTIAL THROMBOPLASTIN TIME 34.3 Sec (23.0-35.0)
[2018-12-05 23:57] LABS: TROPONIN-I < 0.012 ng/ml (0.000-0.120)
[2018-12-06] MEDS: morphine 4 MG/ML VIAL IV (00:28)
[2018-12-06] MEDS: ONDANSETRON 4 MG INJ IV (00:28)
[2018-12-06] MEDS ORDERED: ACETAMINOPHEN 325 MG TAB PO ×2 (01:30→13:30)
[2018-12-06] MEDS ORDERED: ONDANSETRON 4 MG INJ IV (01:30)
[2018-12-06] MEDS: DIPHENHYDRAMINE 50 MG INJ IV (03:45)
[2018-12-06] MEDS: HYDROCORTISONE 100 MG INJ IV (08:53)
[2018-12-06] MEDS ORDERED: IPRATROPIUM (HFA) 12.9 GM INHALER INH (13:30)
[2018-12-06] MEDS ORDERED: ONDANSETRON 4 MG TAB PO (13:30)
[2018-12-06] MEDS ORDERED: LORAZEPAM 0.5 MG TAB PO (13:30)
[2018-12-06] MEDS ORDERED: ZOLPIDEM 5 MG TAB PO (13:30)
[2018-12-06] MEDS ORDERED: NACL 0.9% 3 ML SYG IV (13:30)
[2018-12-06] MEDS ORDERED: DOCUSATE SODIUM 100 MG CAP PO (13:30)
[2018-12-06] MEDS ORDERED: hydrOXYzine HCL 10 MG TAB PO (13:30)
[2018-12-06] MEDS ORDERED: HYDROCODONE/APAP (5/325) TAB PO (13:30)
[2018-12-06] MEDS ORDERED: GLUCOSE GEL 15 GRAM TUBE PO ×2 (14:00)
[2018-12-06] MEDS ORDERED: GLUCOSE GEL 15 GRAM TUBE BUCCAL (14:00)
[2018-12-06] MEDS ORDERED: GLUCAGON 1 MG INJ IM (14:00)
[2018-12-06] MEDS ORDERED: DEXTROSE 50% 50 ML SYRINGE IV ×2 (14:00)
[2018-12-06] MEDS: INSULIN ASPART [NOVOLOG] 3 ML PEN SC ×2 (14:14→22:53)
[2018-12-06] MEDS: LACTATED RINGER'S 500 ML IV (14:22)
[2018-12-06] MEDS: THIAMINE 200 MG INJ IM (14:22)
[2018-12-06] MEDS: AMIODARONE 200 MG TAB PO (14:57)
[2018-12-06] MEDS: NA PHOSPHATE/BIPHOS 133 ML ENEMA PR (16:08)
[2018-12-06 17:40] LABS: CREATINE KINASE 28 IU/L (23-200)
[2018-12-06] MEDS: ACCU-CHEK XX ×2 (17:42→21:00)
[2018-12-06] MEDS: MAGNESIUM CITRATE 300 ML BTL PO (17:52)
[2018-12-06 17:54] LABS: CK INDEX 2.2; CK-MB 0.62 ng/ml (0.0-2.4); TROPONIN-I < 0.012 ng/ml (0.000-0.120)
[2018-12-06] MEDS: metFORMIN 500 MG TAB PO (18:15)
[2018-12-06] MEDS: BISACODYL (EC) 5 MG TAB PO (19:49)
[2018-12-06] MEDS: TAMSULOSIN (SR) 0.4 MG CAP PO (20:47)
[2018-12-06] MEDS: ATORVASTATIN 10 MG TAB PO (20:47)
[2018-12-06] MEDS: APIXABAN 5 MG TABLET PO (20:47)
[2018-12-06] MEDS: GABAPENTIN 300 MG CAP PO (20:47)
[2018-12-06] MEDS: FAMOTIDINE 20 MG TAB PO (20:48)
[2018-12-06] MEDS ORDERED: HEPARIN 5,000 UNIT/1 ML VIAL SC (21:00)
[2018-12-06 21:42] LABS: ALANINE AMINOTRANSFERASE 20 IU/L (13-69); ALBUMIN 3.3 g/dl (3.3-4.9); ALBUMIN/GLOBULIN RATIO 1.13; ALKALINE PHOSPHATASE 98 IU/L (42-121); AMYLASE 48 U/L (11-123); ANION GAP 8 (5-13); ASPARTATE AMINO TRANSFERASE 19 IU/L (15-46); BILIRUBIN,INDIRECT 0.3 mg/dl (0-1.1); BILIRUBIN,TOTAL 0.3 mg/dl (0.2-1.3); BLOOD UREA NITROGEN 23 mg/dl (7-20); CALCIUM 8.7 mg/dl (8.4-10.2); CARBON DIOXIDE 28 mmol/L (21-31); CHLORIDE 99 mmol/L (97-110); CREATININE 0.73 mg/dl (0.61-1.24); GLUCOSE 191 mg/dl (70-220); LIPASE 41 U/L (23-300); POTASSIUM 4.5 mmol/L (3.5-5.1); SODIUM 135 mmol/L (135-144); TOTAL PROTEIN 6.2 g/dl (6.1-8.1)
[2018-12-06 21:44] LABS: CREATINE KINASE 45 IU/L (23-200)
[2018-12-06] MEDS: PEG/ELECTROLYTES 4L BTL PO (21:51)
[2018-12-06 21:58] LABS: CK INDEX 1.6; CK-MB 0.72 ng/ml (0.0-2.4); TROPONIN-I < 0.012 ng/ml (0.000-0.120)
[2018-12-06] MEDS: DOXEPIN 25 MG CAP PO (22:24)
[2018-12-06] MEDS: THIAMINE 100 MG TAB PO (22:25)
[2018-12-07] MEDS: ACCU-CHEK XX ×5 (02:25→20:35)
[2018-12-07 05:37] LABS: ADD MAN DIFF? NO
[2018-12-07 05:43] LABS: BASOPHIL # 0.1 10^3/ul (0.0-0.1); BASOPHILS % 0.9 % (0.0-2.0); EOSINOPHILS # 0.7 10^3/ul (0.0-0.5); EOSINOPHILS % 11.1 % (0.0-7.0); HEMATOCRIT 25.8 % (42.0-52.0); HEMOGLOBIN 8.7 g/dl (14.0-18.0); LYMPHOCYTES # 0.9 10^3/ul (0.8-2.9); LYMPHOCYTES % 14.4 % (15.0-51.0); MEAN CORPUSCULAR HEMOGLOBIN 29.9 pg (29.0-33.0); MEAN CORPUSCULAR HGB CONC 33.7 g/dl (32.0-37.0); MEAN CORPUSCULAR VOLUME 88.7 fl (82.0-101.0); MEAN PLATELET VOLUME 8.4 fl (7.4-10.4); MONOCYTE # 0.8 10^3/ul (0.3-0.9); MONOCYTES % 12.4 % (0.0-11.0); NEUTROPHILS % 60.3 % (39.0-77.0); PLATELET COUNT 229 10^3/UL (140-415); RED BLOOD COUNT 2.91 10^6/ul (4.70-6.10); RED CELL DISTRIBUTION WIDTH 13.2 % (11.5-14.5)
[2018-12-07 05:43] LABS: WHITE BLOOD COUNT 6.6 10^3/ul (4.8-10.8)
[2018-12-07 06:13] LABS: ALANINE AMINOTRANSFERASE 29 IU/L (13-69); ALBUMIN 2.8 g/dl (3.3-4.9); ALBUMIN/GLOBULIN RATIO 0.93; ALKALINE PHOSPHATASE 89 IU/L (42-121); ANION GAP 4 (5-13); ASPARTATE AMINO TRANSFERASE 19 IU/L (15-46); BILIRUBIN,INDIRECT 0.3 mg/dl (0-1.1); BILIRUBIN,TOTAL 0.3 mg/dl (0.2-1.3); BLOOD UREA NITROGEN 19 mg/dl (7-20); CALCIUM 8.6 mg/dl (8.4-10.2); CARBON DIOXIDE 33 mmol/L (21-31); CHLORIDE 101 mmol/L (97-110); CREATININE 0.66 mg/dl (0.61-1.24); GLUCOSE 179 mg/dl (70-220); POTASSIUM 4.3 mmol/L (3.5-5.1); SODIUM 138 mmol/L (135-144); TOTAL PROTEIN 5.8 g/dl (6.1-8.1)
[2018-12-07] MEDS ORDERED: PROPOFOL 200 MG INJ (07:00)
[2018-12-07] MEDS: LEVOTHYROXINE 100 MCG TAB PO (07:00)
[2018-12-07 07:03] LABS: HEMOGLOBIN A1C 8.9 % (0-5.9)
[2018-12-07] MEDS ORDERED: SOD SEL PO (09:00)
[2018-12-07] MEDS ORDERED: LYC PO (09:00)
[2018-12-07] MEDS ORDERED: VIT E PO (09:00)
[2018-12-07] MEDS ORDERED: PYG PO (09:00)
[2018-12-07] MEDS ORDERED: SAW PO (09:00)
[2018-12-07] MEDS: GABAPENTIN 300 MG CAP PO ×3 (09:00→20:33)
[2018-12-07] MEDS ORDERED: [UNRECOGNIZED DRUG - OTHER] PO (09:00)
[2018-12-07] MEDS ORDERED: LACTOBACILLUS COMBINATION NO 4 PO (09:00)
[2018-12-07] MEDS: INSULIN ASPART [NOVOLOG] 3 ML PEN SC ×4 (09:22→20:26)
[2018-12-07] MEDS: LIDOCAINE 2% (SDV) 5 ML INJ (11:09)
[2018-12-07] MEDS ORDERED: ONDANSETRON 4 MG INJ IV (11:30)
[2018-12-07] MEDS ORDERED: hydrALAzine 20 MG INJ IV (11:30)
[2018-12-07] MEDS ORDERED: ALBUTEROL 0.083% (NEB) 2.5 MG/3 ML AMP HHN (11:30)
[2018-12-07] MEDS ORDERED: FENTAnyl 50 MCG/ML VIAL IV (11:30)
[2018-12-07] MEDS ORDERED: LABETALOL HCL 20MG INJ IV (11:30)
[2018-12-07] MEDS ORDERED: EPHEDrine 25 MG/5 ML SYG IV (11:30)
[2018-12-07] MEDS ORDERED: METOCLOPRAMIDE 10 MG INJ IV (11:30)
[2018-12-07 13:33] LABS: CHOL/HDL RATIO 5.7 RATIO; HDL CHOLESTEROL 17 mg/dl (31-75); LDL CHOLESTEROL,CALCULATED 52 mg/dl; TRIGLYCERIDES 139 mg/dl (0-149)
[2018-12-07 13:33] LABS: CHOLESTEROL 97 mg/dl (100-200)
[2018-12-07] MEDS: PANTOPRAZOLE (EC) 40 MG TAB PO ×2 (13:36→20:33)
[2018-12-07] MEDS: METOPROLOL (XL) 25 MG TAB PO (13:37)
[2018-12-07] MEDS: AMIODARONE 200 MG TAB PO (13:37)
[2018-12-07] MEDS: FUROSEMIDE 20 MG TAB PO (13:37)
[2018-12-07] MEDS: ASPIRIN 81 MG TAB PO (13:38)
[2018-12-07] MEDS: metFORMIN 500 MG TAB PO ×2 (13:38→18:28)
[2018-12-07] MEDS: LACTOBACILLUS RHAMNOSUS CAP PO (13:38)
[2018-12-07] MEDS: FAMOTIDINE 20 MG TAB PO (13:38)
[2018-12-07] MEDS: LINAGLIPTIN 5 MG TABLET PO (13:38)
[2018-12-07] MEDS: APIXABAN 5 MG TABLET PO ×2 (13:39→20:34)
[2018-12-07] MEDS: PROPOFOL 40 ML (13:48)
[2018-12-07] MEDS: SOD FERRIC GLUC COMPLX 125 MG in SOD CHLORIDE 0.9% 100 ML IVPB (16:04)
[2018-12-07] MEDS: SUCRALFATE 1 GM TAB PO ×2 (17:27→20:33)
[2018-12-07] MEDS: TAMSULOSIN (SR) 0.4 MG CAP PO (20:32)
[2018-12-07] MEDS: DOXEPIN 25 MG CAP PO (20:33)
[2018-12-07] MEDS: ATORVASTATIN 10 MG TAB PO (20:33)
[2018-12-07] MEDS: THIAMINE 100 MG TAB PO (20:33)
[2018-12-07] MEDS ORDERED: traMADol 50 MG TAB PO (22:00)
[2018-12-08] MEDS: ACCU-CHEK XX ×3 (02:00→11:30)
[2018-12-08 06:13] LABS: ADD MAN DIFF? NO
[2018-12-08 06:17] LABS: BASOPHIL # 0.1 10^3/ul (0.0-0.1); BASOPHILS % 0.5 % (0.0-2.0); EOSINOPHILS # 0.7 10^3/ul (0.0-0.5); EOSINOPHILS % 7.3 % (0.0-7.0); HEMATOCRIT 24.5 % (42.0-52.0); LYMPHOCYTES # 0.9 10^3/ul (0.8-2.9); LYMPHOCYTES % 10.1 % (15.0-51.0); MEAN CORPUSCULAR HGB CONC 32.7 g/dl (32.0-37.0); MEAN CORPUSCULAR VOLUME 88.8 fl (82.0-101.0); MEAN PLATELET VOLUME 8.4 fl (7.4-10.4); MONOCYTES % 10.3 % (0.0-11.0); NEUTROPHIL # 6.6 10^3/ul (1.6-7.5); NEUTROPHILS % 70.9 % (39.0-77.0); PLATELET COUNT 245 10^3/UL (140-415); RED BLOOD COUNT 2.76 10^6/ul (4.70-6.10); RED CELL DISTRIBUTION WIDTH 13.5 % (11.5-14.5)
[2018-12-08 06:17] LABS: WHITE BLOOD COUNT 9.3 10^3/ul (4.8-10.8)
[2018-12-08] MEDS: LEVOTHYROXINE 100 MCG TAB PO (06:17)
[2018-12-08 06:58] LABS: ALANINE AMINOTRANSFERASE 24 IU/L (13-69); ALBUMIN 2.6 g/dl (3.3-4.9); ALBUMIN/GLOBULIN RATIO 0.92; ALKALINE PHOSPHATASE 88 IU/L (42-121); ANION GAP 6 (5-13); ASPARTATE AMINO TRANSFERASE 17 IU/L (15-46); BILIRUBIN,INDIRECT 0.2 mg/dl (0-1.1); BILIRUBIN,TOTAL 0.2 mg/dl (0.2-1.3); BLOOD UREA NITROGEN 16 mg/dl (7-20); CALCIUM 8.2 mg/dl (8.4-10.2); CARBON DIOXIDE 29 mmol/L (21-31); CHLORIDE 103 mmol/L (97-110); CREATININE 0.73 mg/dl (0.61-1.24); GLUCOSE 142 mg/dl (70-220); POTASSIUM 3.5 mmol/L (3.5-5.1); SODIUM 138 mmol/L (135-144); TOTAL PROTEIN 5.4 g/dl (6.1-8.1)
[2018-12-08] MEDS: INSULIN ASPART [NOVOLOG] 3 ML PEN SC ×2 (08:09→11:51)
[2018-12-08] MEDS: LINAGLIPTIN 5 MG TABLET PO (08:52)
[2018-12-08] MEDS: LACTOBACILLUS RHAMNOSUS CAP PO (08:52)
[2018-12-08] MEDS: SUCRALFATE 1 GM TAB PO (08:52)
[2018-12-08] MEDS: FISH OIL 1,000 MG CAP PO (08:52)
[2018-12-08] MEDS: metFORMIN 500 MG TAB PO (08:52)
[2018-12-08] MEDS: APIXABAN 5 MG TABLET PO (08:53)
[2018-12-08] MEDS: AMIODARONE 200 MG TAB PO (08:53)
[2018-12-08] MEDS: GABAPENTIN 300 MG CAP PO (08:53)
[2018-12-08] MEDS: FUROSEMIDE 20 MG TAB PO (08:53)
[2018-12-08] MEDS: PANTOPRAZOLE (EC) 40 MG TAB PO (08:54)
[2018-12-08] MEDS: METOPROLOL (XL) 25 MG TAB PO (08:54)
[2018-12-08] MEDS: SOD FERRIC GLUC COMPLX 125 MG in SOD CHLORIDE 0.9% 100 ML IVPB (09:59)
== END 2018-12-08 11:52 | disposition home or self-care (01) | DRG 378 ==
LOC: E/R 22:02 → 6WM 12-06 01:13
PROC: 0DB68ZX Excision of Stomach, Via Natural or Artificial Opening Endoscopic, Diagnostic (ICD-10-PCS; principal; 2018-12-07 10:44)
PROC: 0DBC8ZX Excision of Ileocecal Valve, Via Natural or Artificial Opening Endoscopic, Diagnostic (ICD-10-PCS; 2018-12-07 10:44)
DX: K25.0 Acute gastric ulcer with hemorrhage (principal); M35.1 Other overlap syndromes; I50.22 Chronic systolic (congestive) heart failure; R55 Syncope and collapse; K57.31 Diverticulosis of large intestine without perforation or abscess with bleeding; K25.4 Chronic or unspecified gastric ulcer with hemorrhage; J44.9 Chronic obstructive pulmonary disease, unspecified; N40.1 Benign prostatic hyperplasia with lower urinary tract symptoms; I11.0 Hypertensive heart disease with heart failure; I34.0 Nonrheumatic mitral (valve) insufficiency; E78.2 Mixed hyperlipidemia; I48.2 Chronic atrial fibrillation; E03.9 Hypothyroidism, unspecified; K64.8 Other hemorrhoids; K59.09 Other constipation; I48.0 Paroxysmal atrial fibrillation; Z85.89 Personal history of malignant neoplasm of other organs and systems; Z95.0 Presence of cardiac pacemaker; Z79.01 Long term (current) use of anticoagulants; Z79.82 Long term (current) use of aspirin
CPT/HCPCS: 36415; 70450; 71045; 80048; 80053; 80061; 82150; 82533; 82550; 82553; 82962; 83036; 83690; 84484; 85025; 85610; 85730; 87081; 88305; 88312; 88342; 93005; 93306; 96374; 96375; 97162; 99285-25

== ENCOUNTER 2018-12-17 16:29 | Inpatient (IN) | payer MEDICARE, MEDICAID ==
[2018-12-17 18:31] LABS: ADD MAN DIFF? NO
[2018-12-17 18:32] LABS: WHITE BLOOD COUNT 10.1 10^3/ul (4.8-10.8)
[2018-12-17 18:32] LABS: BASOPHILS % 0.4 % (0.0-2.0); EOSINOPHILS # 0.4 10^3/ul (0.0-0.5); EOSINOPHILS % 3.6 % (0.0-7.0); HEMATOCRIT 29.4 % (42.0-52.0); HEMOGLOBIN 9.3 g/dl (14.0-18.0); LYMPHOCYTES # 0.8 10^3/ul (0.8-2.9); LYMPHOCYTES % 7.7 % (15.0-51.0); MEAN CORPUSCULAR HEMOGLOBIN 28.5 pg (29.0-33.0); MEAN CORPUSCULAR HGB CONC 31.6 g/dl (32.0-37.0); MEAN CORPUSCULAR VOLUME 90.2 fl (82.0-101.0); MONOCYTES % 9.5 % (0.0-11.0); NEUTROPHIL # 7.9 10^3/ul (1.6-7.5); PLATELET COUNT 290 10^3/UL (140-415); RED BLOOD COUNT 3.26 10^6/ul (4.70-6.10); RED CELL DISTRIBUTION WIDTH 13.6 % (11.5-14.5)
[2018-12-17 18:48] LABS: ANION GAP 5 (5-13); BLOOD UREA NITROGEN 10 mg/dl (7-20); CALCIUM 9.2 mg/dl (8.4-10.2); CARBON DIOXIDE 32 mmol/L (21-31); CHLORIDE 98 mmol/L (97-110); CREATININE 0.77 mg/dl (0.61-1.24); GLUCOSE 179 mg/dl (70-220); POTASSIUM 5.1 mmol/L (3.5-5.1); SODIUM 135 mmol/L (135-144)
[2018-12-17 18:59] LABS: TROPONIN-I < 0.012 ng/ml (0.000-0.120)
[2018-12-17] MEDS ORDERED: NACL 0.9% 3 ML SYG IV (21:30)
[2018-12-17] MEDS ORDERED: NITROGLYCERIN (SL) 0.4 MG TAB SL (21:30)
[2018-12-17] MEDS ORDERED: DOCUSATE SODIUM 100 MG CAP PO (21:30)
[2018-12-17] MEDS ORDERED: ONDANSETRON 4 MG TAB PO (21:30)
[2018-12-17 22:39] LABS: CREATINE KINASE 51 IU/L (23-200)
[2018-12-17 22:49] LABS: CK INDEX 1.4; CK-MB 0.73 ng/ml (0.0-2.4)
[2018-12-17 22:53] LABS: TROPONIN-I < 0.012 ng/ml (0.000-0.120)
[2018-12-17] MEDS ORDERED: DEXTROSE 50% 50 ML SYRINGE IV ×2 (23:00)
[2018-12-17] MEDS ORDERED: GLUCOSE GEL 15 GRAM TUBE BUCCAL (23:00)
[2018-12-17] MEDS ORDERED: GLUCAGON 1 MG INJ IM (23:00)
[2018-12-17] MEDS ORDERED: GLUCOSE GEL 15 GRAM TUBE PO ×2 (23:00)
[2018-12-18] MEDS: LORAZEPAM 0.5 MG TAB PO (02:36)
[2018-12-18] MEDS ORDERED: PANTOPRAZOLE (EC) 40 MG TAB PO (06:00)
[2018-12-18] MEDS: PANTOPRAZOLE (EC) 40 MG TAB PO ×2 (06:15→17:40)
[2018-12-18] MEDS: LEVOTHYROXINE 100 MCG TAB PO (06:16)
[2018-12-18 06:48] LABS: ADD MAN DIFF? NO
[2018-12-18 06:51] LABS: BASOPHILS % 0.4 % (0.0-2.0); EOSINOPHILS # 0.5 10^3/ul (0.0-0.5); EOSINOPHILS % 6.4 % (0.0-7.0); HEMATOCRIT 28.8 % (42.0-52.0); HEMOGLOBIN 9.1 g/dl (14.0-18.0); LYMPHOCYTES # 0.9 10^3/ul (0.8-2.9); LYMPHOCYTES % 11.2 % (15.0-51.0); MEAN CORPUSCULAR HEMOGLOBIN 28.3 pg (29.0-33.0); MEAN CORPUSCULAR HGB CONC 31.6 g/dl (32.0-37.0); MEAN CORPUSCULAR VOLUME 89.4 fl (82.0-101.0); MEAN PLATELET VOLUME 8.6 fl (7.4-10.4); MONOCYTES % 12.1 % (0.0-11.0); NEUTROPHIL # 5.8 10^3/ul (1.6-7.5); NEUTROPHILS % 69.2 % (39.0-77.0); PLATELET COUNT 308 10^3/UL (140-415); RED BLOOD COUNT 3.22 10^6/ul (4.70-6.10); RED CELL DISTRIBUTION WIDTH 13.5 % (11.5-14.5)
[2018-12-18 06:51] LABS: WHITE BLOOD COUNT 8.3 10^3/ul (4.8-10.8)
[2018-12-18 07:33] LABS: ALANINE AMINOTRANSFERASE 21 IU/L (13-69); ALBUMIN 3.2 g/dl (3.3-4.9); ALBUMIN/GLOBULIN RATIO 1.03; ALKALINE PHOSPHATASE 100 IU/L (42-121); ANION GAP 7 (5-13); ASPARTATE AMINO TRANSFERASE 23 IU/L (15-46); BILIRUBIN,INDIRECT 0.4 mg/dl (0-1.1); BILIRUBIN,TOTAL 0.4 mg/dl (0.2-1.3); BLOOD UREA NITROGEN 10 mg/dl (7-20); CALCIUM 8.8 mg/dl (8.4-10.2); CARBON DIOXIDE 29 mmol/L (21-31); CHLORIDE 100 mmol/L (97-110); CREATINE KINASE 63 IU/L (23-200); CREATININE 0.61 mg/dl (0.61-1.24); GLUCOSE 179 mg/dl (70-220); POTASSIUM 4.1 mmol/L (3.5-5.1); SODIUM 136 mmol/L (135-144); TOTAL PROTEIN 6.3 g/dl (6.1-8.1)
[2018-12-18 07:45] LABS: CK INDEX 1.3; TROPONIN-I < 0.012 ng/ml (0.000-0.120)
[2018-12-18] MEDS: SUCRALFATE 1 GM TAB PO ×4 (08:22→21:29)
[2018-12-18] MEDS: metFORMIN 500 MG TAB PO ×2 (08:22→17:38)
[2018-12-18] MEDS: FISH OIL 1,000 MG CAP PO ×2 (08:22→21:29)
[2018-12-18] MEDS: METOPROLOL (XL) 25 MG TAB PO (08:23)
[2018-12-18] MEDS: GABAPENTIN 300 MG CAP PO ×3 (08:23→21:29)
[2018-12-18] MEDS: LINAGLIPTIN 5 MG TABLET PO (08:23)
[2018-12-18] MEDS: APIXABAN 5 MG TABLET PO ×2 (08:24→21:30)
[2018-12-18] MEDS: LACTOBACILLUS RHAMNOSUS CAP PO (08:24)
[2018-12-18] MEDS: AMIODARONE 200 MG TAB PO (08:24)
[2018-12-18] MEDS ORDERED: VIT E PO (09:00)
[2018-12-18] MEDS ORDERED: LYC PO (09:00)
[2018-12-18] MEDS ORDERED: [UNRECOGNIZED DRUG - OTHER] PO (09:00)
[2018-12-18] MEDS ORDERED: SAW PO (09:00)
[2018-12-18] MEDS ORDERED: NON-FORMULARY/PATIENT OWN MED (Icosapent Ethyl (Vascepa) 1 GM) PO (09:00)
[2018-12-18] MEDS ORDERED: PYG PO (09:00)
[2018-12-18] MEDS ORDERED: SOD SEL PO (09:00)
[2018-12-18] MEDS ORDERED: LACTOBACILLUS COMBINATION NO 4 PO (09:00)
[2018-12-18 18:01] LABS: IRON 17 ug/dl (35-150)
[2018-12-18 18:10] LABS: % IRON SATURATION 8 % SAT (22-52); TOTAL IRON BINDING CAPACITY 221 ug/dl (241-421)
[2018-12-18] MEDS: CYANOCOBALAMIN 500 MCG TAB PO (19:05)
[2018-12-18] MEDS ORDERED: TAMSULOSIN (SR) 0.4 MG CAP PO (21:00)
[2018-12-18] MEDS: DOXEPIN 25 MG CAP PO (21:29)
[2018-12-18] MEDS: ATORVASTATIN 10 MG TAB PO (21:29)
[2018-12-18] MEDS: ALFUZOSIN (SR) 10 MG TAB PO (21:30)
[2018-12-18] MEDS: SOD FERRIC GLUC COMPLX 125 MG in SOD CHLORIDE 0.9% 100 ML IVPB (22:17)
[2018-12-19] MEDS: PANTOPRAZOLE (EC) 40 MG TAB PO ×2 (06:41→17:01)
[2018-12-19] MEDS: LEVOTHYROXINE 100 MCG TAB PO (06:41)
[2018-12-19] MEDS: GABAPENTIN 300 MG CAP PO ×3 (09:47→21:12)
[2018-12-19] MEDS: APIXABAN 5 MG TABLET PO ×2 (09:47→21:13)
[2018-12-19] MEDS: SUCRALFATE 1 GM TAB PO ×2 (09:47→12:43)
[2018-12-19] MEDS: FISH OIL 1,000 MG CAP PO ×2 (09:48→21:12)
[2018-12-19] MEDS: LACTOBACILLUS RHAMNOSUS CAP PO (09:48)
[2018-12-19] MEDS: CYANOCOBALAMIN 500 MCG TAB PO (09:48)
[2018-12-19] MEDS: LINAGLIPTIN 5 MG TABLET PO (09:49)
[2018-12-19] MEDS: metFORMIN 500 MG TAB PO ×2 (09:49→17:01)
[2018-12-19] MEDS: AMIODARONE 200 MG TAB PO (10:09)
[2018-12-19] MEDS: METOPROLOL (XL) 25 MG TAB PO (10:09)
[2018-12-19] MEDS: HYDROCODONE/APAP (5/325) TAB PO (13:51)
[2018-12-19] MEDS: SOD FERRIC GLUC COMPLX 125 MG in SOD CHLORIDE 0.9% 100 ML IVPB (14:58)
[2018-12-19] MEDS: ALFUZOSIN (SR) 10 MG TAB PO (21:13)
[2018-12-19] MEDS: DOXEPIN 25 MG CAP PO (21:13)
[2018-12-19] MEDS: ATORVASTATIN 10 MG TAB PO (21:13)
[2018-12-20] MEDS: PANTOPRAZOLE (EC) 40 MG TAB PO ×2 (06:32→17:49)
[2018-12-20] MEDS: LEVOTHYROXINE 100 MCG TAB PO (06:32)
[2018-12-20] MEDS: metFORMIN 500 MG TAB PO (08:18)
[2018-12-20] MEDS: FISH OIL 1,000 MG CAP PO (09:08)
[2018-12-20] MEDS: METOPROLOL (XL) 25 MG TAB PO (09:10)
[2018-12-20] MEDS: CYANOCOBALAMIN 500 MCG TAB PO (09:11)
[2018-12-20] MEDS: GABAPENTIN 300 MG CAP PO ×2 (09:11→13:03)
[2018-12-20] MEDS: LINAGLIPTIN 5 MG TABLET PO (09:11)
[2018-12-20] MEDS: LACTOBACILLUS RHAMNOSUS CAP PO (09:11)
[2018-12-20] MEDS: APIXABAN 5 MG TABLET PO (09:11)
[2018-12-20] MEDS: AMIODARONE 200 MG TAB PO (09:12)
[2018-12-20] MEDS ORDERED: GABAPENTIN 300 MG CAP PO (21:00)
[2018-12-21] MEDS ORDERED: GABAPENTIN 300 MG CAP PO (09:00)
== END 2018-12-20 18:55 | disposition home or self-care (01) | DRG 312 ==
LOC: TEL 20:47 → E/R 16:29 → TEL 12-18 18:51
DX: R55 Syncope and collapse (principal); C46.9 Kaposi's sarcoma, unspecified; I50.22 Chronic systolic (congestive) heart failure; I48.0 Paroxysmal atrial fibrillation; I11.0 Hypertensive heart disease with heart failure; E11.9 Type 2 diabetes mellitus without complications; D50.0 Iron deficiency anemia secondary to blood loss (chronic); J44.9 Chronic obstructive pulmonary disease, unspecified; T44.6X5A Adverse effect of alpha-adrenoreceptor antagonists, initial encounter; T42.6X5A Adverse effect of other antiepileptic and sedative-hypnotic drugs, initial encounter; I25.10 Atherosclerotic heart disease of native coronary artery without angina pectoris; K21.9 Gastro-esophageal reflux disease without esophagitis; E78.5 Hyperlipidemia, unspecified; E03.9 Hypothyroidism, unspecified; K40.90 Unilateral inguinal hernia, without obstruction or gangrene, not specified as recurrent; N40.1 Benign prostatic hyperplasia with lower urinary tract symptoms; K25.7 Chronic gastric ulcer without hemorrhage or perforation; Y92.019 Unspecified place in single-family (private) house as the place of occurrence of the external cause; Z79.84 Long term (current) use of oral hypoglycemic drugs; Z95.0 Presence of cardiac pacemaker; Z85.72 Personal history of non-Hodgkin lymphomas
CPT/HCPCS: 36415; 70450; 80048; 80053; 82533; 82550; 82553; 82728; 82962; 83036; 83540; 84484; 85025; 87040-91; 87086; 93005; 97110; 97116; 97161; 97166; 99285-25; G0378

== ENCOUNTER 2019-01-25 10:50 | Day surgery (SDC) | payer MEDICARE, OTHER ==
[2019-01-25] MEDS ORDERED: FENTAnyl 50 MCG/ML VIAL (11:44)
[2019-01-25] MEDS ORDERED: LIDOCAINE 2% (SDV) 5 ML INJ (11:44)
[2019-01-25] MEDS ORDERED: PROPOFOL 20 ML (11:44)
[2019-01-25] MEDS ORDERED: PHENYLephrine (100 MCG/ML) 10ML SYG (12:08)
[2019-01-25] MEDS ORDERED: ONDANSETRON 4 MG INJ IV (12:30)
== END 2019-01-25 15:57 | disposition home or self-care (01) ==
LOC: GIL 10:50
DX: K29.50 Unspecified chronic gastritis without bleeding (principal); K25.9 Gastric ulcer, unspecified as acute or chronic, without hemorrhage or perforation; I10 Essential (primary) hypertension; N40.0 Benign prostatic hyperplasia without lower urinary tract symptoms; E11.9 Type 2 diabetes mellitus without complications; J45.909 Unspecified asthma, uncomplicated; Z95.0 Presence of cardiac pacemaker; M19.90 Unspecified osteoarthritis, unspecified site; Z79.01 Long term (current) use of anticoagulants
CPT/HCPCS: 43239; 82962; 88305; 88312